=== PATIENT | female | born 1975 | race Two or more races ===

== ENCOUNTER 2017-04-05 21:08 | Emergency (ER) | payer SELFPAY ==
[~2017-04-05] VITALS: Ht 172.7 cm; Wt 45.4 kg
[2017-04-05] MEDS ORDERED: Tylenol #3 tab (300mg/30mg) PO ONE (22:00)
[2017-04-06 01:15] VITALS: BP 120/74
[2017-04-06] MEDS ORDERED: TYLENOL EXTRA500 MG ORAL (02:08)
[2017-04-06 02:20] VITALS: BP 126/76
--- NOTE | 2017-04-06 09:11 | Diagnostic Imaging Report ---
Indications: Fall, head injury and pain Technique: Continuous helical CT imaging of the brain was performed with automatic exposure control on a Siemens sensation [address] scanner. Axial and coronal images were reconstructed at 5 mm slice thickness and interval. CTDI volume(s): 70x2 mGy Total DLP: 2896 mGy-cm Findings: Comparison: None. Intracranial anatomy is unremarkable. No evidence of mass or hemorrhage, other attenuation abnormality, mass effect, midline shift, hydrocephalus or increased intracranial pressure. Bone window images are unremarkable. Visualized paranasal sinuses and mastoid air cells are clear. IMPRESSION: Negative noncontrast CT scan of the brain --no evidence of acute injury. This correlates with [facility] preliminary report. The CT scanner at [facility] is accredited by the [employer] and the scans are performed using protocols designed to limit radiation exposure to as low as reasonably achievable to attain images of sufficient resolution adequate for diagnostic evaluation.
--- NOTE | 2017-04-06 13:35 | Diagnostic Imaging Report ---
Indications: Fall, neck injury and pain Technique: Continuous helical CT imaging of the cervical spine performed with automatic exposure was on a Siemens sensation [address] scanner. Axial, coronal and sagittal images reconstructed at 3 mm slice thicknesses. CTDI volume(s): 11 mGy Total DLP: 236 mGy-cm Findings: Comparison: None. Lordotic curvature is preserved.Vertebral alignment is intact. No fracture, facet subluxation or dislocation, prevertebral soft tissue swelling, or other acute changes are demonstrated. Osteophytes at the margins of C4-5 through C6-7 disc spaces without significant narrowing. No obvious significant spinal stenosis results. Multilevel facet hypertrophy. Multilevel neural foraminal narrowing.. IMPRESSION: No evidence of acute cervical injury. Degenerative spondylosis This correlates with [facility] preliminary report The CT scanner at [facility] is accredited by the [employer] and the scans are performed using protocols designed to limit radiation exposure to as low as reasonably achievable to attain images of sufficient resolution adequate for diagnostic evaluation.
--- NOTE | 2017-04-06 13:35 | Diagnostic Imaging Report ---
Indications: Fall, left shoulder injury and pain Technique: 3 views left shoulder. Findings: Comparison: None No fracture, dislocation, joint space widening , surrounding soft tissue swelling/foreign body/gas, or other acute changes are identified. IMPRESSION: No evidence of acute injury to the left shoulder.
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
== END 2017-04-06 02:19 | disposition home or self-care (01) ==
LOC: EDBD 21:08 → EMR 21:30
DX: M54.2 Cervicalgia (principal); R51 Headache
CPT/HCPCS: 70450; 72125; 99284